=== PATIENT | male | born 1940 | race Caucasian/White ===

== ENCOUNTER → 2021-02-05 | Outpatient (CLI) | payer OTHER, MEDICARE ==
[~2021-02-05] VITALS: Ht 175.3 cm; Wt 90.7 kg
[~2021-02-05] MED LIST: ADULT LOW DOSE81 MG PO; ATORVASTATIN CA20 MG PO; CADUET 10 MG-11 EACH PO; CELEBREX 200 M200 MG PO; CELEBREX PO; CELEBREX100 MG/1 C PO; CELEBREX50 MG PO; EC-NAPROSYN500 MG PO; FLOMAX0.4 MG PO; HYDROCHLOROTH12.5 M2 PO; HYDROCODON-ACE1 EAC5 PO; NABUMETONE 500500 M1 PO; NORCO 5-325 TA1 EACH PO; NORVASC10 MG PO; REPLACE1 EACH PO; VICODIN 5-5001 EACH PO
[2021-02-05 08:39] VITALS: BP 164/70
--- NOTE | 2021-02-05 08:49 | NUR ---
Pain Clinic Assessment: 1. History of Osteoarthritis: BILATERAL HANDS History of Rheumatoid Arthritis: 2. Height: 5 ft. 9 in. 175.3 cm. Weight: 200.0 lb. oz. 90.720 kg. Patient's BMI: 29.5 3. Vital Signs: BP: 164/70 Pulse: 80 Resp: 16 Temp: 02 Sat: 98 ECG Mon: 4. Pain Intensity: 4 5. Fall Risk: Dizziness: N Needs help standing or walking: N Fallen in the last 3 months: N Fall risk comments: 6. Patient on Blood Thinner: None 7. History of Hypertension: Y 8. Opioid Therapy greater than 6 weeks: Opiate Contract Signed: 9. Risk Assessment Tool Provided: 0 LOW RISK 10. Functional Assessment Tool: 59/70 11. Recreational Drug Use: Never Drug Type: Tobacco Use: Never Smoker Tobacco Type: Amount or Packs/day: How Many Years: Alcohol Use: Yes Frequency: Monthly Quant: 3
--- NOTE | 2021-02-06 07:55 | HPC ---
[facility] [address] [address] PAIN MANAGEMENT CONSULTATION Name: WENDY PELAEZ Room #: REG THEE MarieeVictor MMichel.#: [id number] Admission: 02/05/21 Attend Phys: Mickey Rosales DO Discharge: Date of : 44 Report #: [id number] THIS REPORT FOR: cc: Alexys Castro MD, David A. MD Johnson, James E. DO ~ cc: Alexys Castro MD DATE OF SERVICE: 02/05/2021 CHIEF COMPLAINT: Left shoulder pain. HISTORY OF PRESENT ILLNESS: As you know, the patient is a very pleasant 80-year-old male reporting longstanding history of bilateral shoulder pain due to progressively worsening osteoarthritis and rotator cuff injuries. The patient reports he has undergone injections by his orthopedic surgeon in the past to address both right and left shoulder pain. The injections had worked very well. He repeated those injections periodically. He had been doing very well until just recently where [place] and exacerbated his left shoulder pain. He trialed conservative treatment, which did not provide much in the way of benefit. He returned to his physical therapy exercise programs and these did not seem to improve symptoms. He sought evaluation through his primary care physician who offered referral to our clinic to discuss treatment options for left shoulder pain. The patient states the pain has been present for about 3 weeks. He has tried [id number] medications, rest, relaxation without benefit. Due to lack of improvement with conservative treatment option and patient's desire to move forward with intraarticular left shoulder injection, the patient was referred on to our clinic. The patient reports his pain today is continuous with intermittent exacerbations. He describes the pain more as a stabbing and aching sensation. He places his current pain score 4/10, daily average of 5/10, worst pain has been as 8/10. The patient states pain is exacerbated with using his left upper extremity in any way, improves with nothing today. He has been referred to our service to discuss interventional treatment options to address left shoulder pain. PAST MEDICAL HISTORY: 1. Chronic low back pain. 2. Benign prostatic hypertrophy. 3. Hypertension. 4. Dyslipidemia. 5. Osteoarthritis. 6. Hematuria. 7. Chronic lumbar radiculopathy. 8. History of nephrolithiasis. [address] [address] PAIN MANAGEMENT CONSULTATION Name: WENDY PELAEZ [facility] [id number] Admission: 02/05/21 Attend Phys: Mickey Rosales DO Discharge: Date of : 44 Report #: [id number] 9. Chronic intractable pain. PAST SURGICAL HISTORY: 1. Cholecystectomy. 2. Inguinal herniorrhaphy. 3. Cataract surgeries. SOCIAL HISTORY: The patient denies tobacco use. Denies IV or illicit drug use. He admits an occasional alcohol beverage. He is , unaccompanied today. IMAGING: No imaging available. ALLERGIES: No known drug allergies. CURRENT MEDICATIONS: Tamsulosin 0.4 mg once a day, hydrochlorothiazide 12.5 mg once a day, celecoxib 100 mg b.i.d., atorvastatin 20 mg per day, amlodipine 10 mg per day. REVIEW OF SYSTEMS: Positive for hearing loss, chronic sinus problems with rhinitis, shortness of breath with walking and lying flat, nocturia, incontinence and dribbling to urine, change in force of stream in urination, bleeding tendencies, left shoulder pain. All other review of systems negative per 12-point review of systems other than those listed in the history of present illness. Pain impact score 59/70 indicating severe interference with daily activities secondary to pain. PQRS: The patient has known arthritic changes of the cervical spine, bilateral shoulders, bilateral hands and lumbar spine. No rheumatoid arthritis. He is placing pain intensity 4/10, not a fall risk, has not had a fall in the last 3 months. He is not on blood thinners, but history of hypertension. He is not on chronic opioids and has a low opioid addiction potential based on assessment tool. Pain impact is 59-70, severe interference with daily activities secondary to pain. PHYSICAL EXAMINATION: VITAL SIGNS: Blood pressure 164/70, pulse 80, respiratory rate 16 and unlabored. The patient 98% on room air. Height 5 feet 9 inches tall, weight 200 pounds, BMI calculated 29.5. GENERAL: Well-developed, well-nourished, well-hydrated 80-year-old male appearing stated age, pain is rated today at around 4-5/10. HEENT: He is normocephalic, atraumatic. Pupils equal, round and responsive to light. Extraocular muscles are intact. He is wearing a mask in compliance with COVID-19 regulations per hospital requirements. LUNGS: Clear. No wheeze, rhonchi or rales. [facility] [address] [place] [address] PAIN MANAGEMENT CONSULTATION Name: WENDY PELAEZ Room #: RADHA Anderson#: [id number] Admission: 02/05/21 Attend Phys: Mickey RosalesDO Discharge: Date of : 44 Report #: [id number] CARDIOVASCULAR: Regular. No appreciable gallop. No rub. ABDOMEN: Soft, nontender, nondistended. EXTREMITIES: Show no clubbing, no cyanosis and no edema. MUSCULOSKELETAL: Upper extremity strength is symmetrical, 5/5. Giveaway strength noted with abduction of the shoulder as well as forward flexion of the shoulder. There is a positive apprehension test on the left, negative right. No paulette crepitus noted with active and passive range of motion of the left shoulder. Pain is elicited with this maneuver. He has minimal difficulty with liftoff test. There is palpatory tenderness over the paraspinal musculature of the anterior and lateral portion of the shoulder, no posterior palpatory tenderness. ASSESSMENT: 1. Left shoulder pain. 2. Osteoarthritis of the left shoulder. 3. Possible superior labrum anterior-posterior injury. 4. Chronic intractable pain. PLAN: 1. Based on today's physical exam and history the patient has provided, the description the patient uses in regard to pain as well as location of symptoms, it would appear the symptoms he is experiencing are located within the left shoulder joint. We have discussed with the patient the treatment options we have to address intra-articular shoulder pathology. The following was discussed with the patient today. We discussed physical therapy, stretching exercises and shoulder strengthening techniques. We discussed topical nonsteroidal anti-inflammatory applications as well as oral medications to address symptoms. We discussed intra-articular shoulder injections for which the patient was referred to our clinic and ultimately surgical repair. After reviewing the risks and benefits of all proposed treatment options, the patient chose to begin with the intra-articular shoulder injection under fluoroscopic guidance. 2. The patient was advised risks and benefits of intraarticular shoulder injections. These risks include but are not necessarily limited to bleeding, bruising, infection, worsening pain, no relief of pain, also risk of temporary or permanent muscle weakness, temporary or permanent nerve damage, possible joint destruction and . The patient states understood and wished to proceed. 3. No medication changes made at today's visit. The patient will continue current medical therapy as prior prescribed. 4. We plan to see the patient back in followup visit on an as-needed basis for the next in the series of intra-articular shoulder injections. We are hopeful the patient will see good and prolonged benefit with the procedure provided today. 5. We wish to thank Dr. Castro for the referral of this back to our clinic to [address] [address] PAIN MANAGEMENT CONSULTATION Name: WENDY PELAEZ Room #: REG [facility] [id number] Admission: 02/05/21 Attend Phys: Mickey Rosales DO Discharge: Date of : 44 Report #: [id number] address left shoulder pain. Again, we wish to thank you for the opportunity to see this patient in consultation. PROCEDURE NOTE DESCRIPTION OF PROCEDURE: Left intra-articular shoulder injection under fluoroscopic guidance. After obtaining written consent, the patient was taken back to fluoroscopy suite, placed in a supine position. The image intensifier was then brought into position over the left shoulder and AP imaging of the shoulder was obtained. The area was marked and then sterilely prepped with chlorhexidine in sterile fashion. A 27-gauge, 1/4-inch needle was then used to anesthetize skin and subcutaneous tissue with 2 mL of 1% preservative-free lidocaine. A 25-gauge, 2-inch needle was then advanced under fluoroscopic guidance to the proximal head of the humerus. Needle was advanced until reaching the proximal head of the humerus and then retracted 1 mm. After negative aspiration for heme, 3 mL of a solution containing 1 mL and 40 mg per mL 40 mg total triamcinolone and 2 mL of bupivacaine 0.5% was injected slowly. Needle was retracted mcc, flushed with 1 mL of 1% lidocaine, then removed. Sterile bandage placed over injection site. There were no new motor deficits present in the upper extremity following procedure. The patient tolerated procedure well, carefully escorted to recovery room in stable condition. No apparent complications. After meeting our discharge criteria, the patient was discharged home. <ELECTRONICALLY SIGNED> By: Mickey Rosales DO 02/06/21 [id number] Mickey Rosales DO /nt
== END | disposition home or self-care (01) ==
LOC: PAIN 06:53
PROVIDERS: ATTEND Anesthesiology Pain Medicine
DX: M25.512 Pain in left shoulder (principal); M19.012 Primary osteoarthritis, left shoulder; G89.29 Other chronic pain; I10 Essential (primary) hypertension; M19.90 Unspecified osteoarthritis, unspecified site; Z98.890 Other specified postprocedural states; Z79.899 Other long term (current) drug therapy; Z90.49 Acquired absence of other specified parts of digestive tract; Z98.41 Cataract extraction status, right eye; Z98.42 Cataract extraction status, left eye